=== PATIENT | female | born 2000 | race Caucasian/White ===

== ENCOUNTER 2020-12-11 18:51 | Outpatient (CLI) | payer SELFPAY | END 2020-12-11 18:52 | disposition home or self-care (01) | LOC: SCSRAD 18:51 | DX: R04.2 Hemoptysis (principal) | CPT/HCPCS: 71046 ==

== ENCOUNTER 2021-06-17 17:10 | Outpatient (CLI) | payer BC, SELFPAY | END 2021-06-17 17:11 | disposition home or self-care (01) | LOC: SCSRAD 17:10 | DX: M79.675 Pain in left toe(s) (principal) ==